=== PATIENT | female | born 1970 | race Caucasian/White ===

== ENCOUNTER 2017-12-15 22:21 | Emergency (ER) | payer BC ==
[2017-12-15] MEDS: Sodium Chloride 0.9% 1,000 ML IV ONE (23:22)
[2017-12-15] MEDS: Albuterol/Ipratropium 3.0-0.5 MG/3 ML Neb Soln NEB ONE (23:26)
[2017-12-15] MEDS: cefTRIAXone 1 GM Vial IVPUSH ONE (23:26)
[2017-12-15] MEDS: Acetaminophen 500 MG Tab PO ONE (23:27)
--- NOTE | 2017-12-15 23:29 | EDM.PDOC ---
ED HPI GENERAL MEDICAL PROBLEM - General Chief Complaint: Fever Stated Complaint: FEVER Time Seen by Provider: 12/15/17 22:45 Source of Information: Reports: Patient History Limitations: Reports: No Limitations - History of Present Illness INITIAL COMMENTS - FREE TEXT/NARRATIVE: This patient is a 47 year old female that presents to the ER. Patient reports that she began today with right flank pain and fever. She reports that she has a recurrent history of kidney infections. Patient reports this feels just like her kidney infections. Patient reports that also for about 2 weeks having cough , chest tightness due to the smoke in the air due to Myagi and allergies. The patient reports she finished steroids about one week ago. She reports then coming in earlier today, not being seen, but was given an allergy injection. The patient denies headache, n, v, d, f, cp, neck pain, abd pain, bowel changes. Reports some mild dysuria. Also, mild shortness of breath with chest tightness for a couple of weeks. Onset Date: 12/15/17 Duration: Hour(s): (12) Location: Reports: Back Quality: Reports: Ache Severity: Moderate Improves with: Reports: None Worsens with: Reports: None Associated Symptoms: Reports: Cough, Fever/Chills, Shortness of Breath. Denies : Confusion, Chest Pain, cough w sputum, Diaphoresis, Headaches, Loss of Appetite, Malaise, Nausea/Vomiting, Rash, Seizure, Syncope, Weakness Treatments T[employer] FORMS: Reports: Cold Therapy, NSAIDS Left Flank Pain Score (Numeric/FACES): 2 - Related Data Allergies Allergy/AdvReac Type Severity Reaction Status Date / Time Sulfa (Sulfonamide Allergy Nausea and Verified 12/15/17 22:33 Antibiotics) Vomiting Home Meds: Home Meds Sertraline HCl 50 mg PO DAILY 12/15/17 [History] Past Medical History [employer] History: Reports: - Past Surgical History Other Female Surgeries/Procedures: LEFT KIDNEY SURGERY A KID Social & Family History - Family History Family Medical History: Noncontributory - Tobacco Use Smoking Status *Q: Never Smoker - Caffeine Use Caffeine Use: Reports: None - Recreational Drug Use Recreational Drug Use: No ED ROS GENERAL - Review of Systems Review Of Systems: See Below Constitutional: Reports: Fever, Diaphoresis HEENT: Reports: Rhinitis, Sinus Problem Respiratory: Reports: Shortness of Breath, Wheezing, Cough Cardiovascular: Reports: No Symptoms Endocrine: Reports: No Symptoms GI/Abdominal: Reports: No Symptoms. Denies: Abdominal Pain, Nausea, Vomiting : Reports: Dysuria, Flank Pain (Right) Musculoskeletal: Reports: No Symptoms Skin: Reports: No Symptoms Neurological: Reports: No Symptoms Psychiatric: Reports: No Symptoms Hematologic/Lymphatic: Reports: No Symptoms Immunologic: Reports: No Symptoms ED EXAM, RENAL/ - Physical Exam Exam: See Below Exam Limited By: No Limitations General Appearance: Alert, WD/WN, No Apparent Distress Eye Exam: Bilateral Eye: Normal Fundi, Normal Inspection, PERRL Ears: Normal External Exam, Normal Canal, Hearing Grossly Normal, Normal TMs Nose: Normal Inspection, Normal Mucosa, No Blood Throat/Mouth: Normal Inspection, Normal Lips, Normal Teeth, Normal Gums, Normal Oropharynx, Normal Voice, No Airway Compromise Head: Atraumatic, Normocephalic Neck: Normal Inspection, Supple, Non-Tender, Full Range of Motion Respiratory/Chest: No Respiratory Distress, No Accessory Muscle Use, Chest Non- Tender, Wheezing (mildly throughout, inspiratory. ). No: Respiratory Distress Cardiovascular: Normal Peripheral Pulses, No Edema, No Gallop, No JVD, No Murmur , No Rub, Tachycardia (120 on exam. ) GI/Abdominal: Normal Bowel Sounds, Soft, Non-Tender, No Organomegaly, No Distention, No Abnormal Bruit, No Mass, Pelvis Stable (Female) Exam: Deferred Rectal (Female) Exam: Deferred Back Exam: Normal Inspection, Full Range of Motion, CVA Tenderness (R) Extremities: Normal Inspection, Normal Range of Motion, Non-Tender, No Pedal Edema, Normal Capillary Refill Neurological: Alert, Oriented, Normal Cognition, Normal Gait, No Motor/Sensory Deficits Psychiatric: Normal Affect, Normal Mood Skin Exam: Warm, Normal Color, No Rash, Diaphoretic Lymphatic: No Adenopathy Course - Vital Signs Last Recorded V/S: Last Vital Signs Temp 100.1 F 12/15/17 23:46 Pulse 125 H 12/15/17 22:56 Resp 20 12/15/17 22:56 BP 148/52 H 12/15/17 22:56 Pulse Ox 96 12/15/17 22:56 - Orders/Labs/Meds Orders: Active Orders 24 hr Category Date Time Status RT Aerosol Therapy [RC] ASDIRECTED Care 12/15/17 23:06 Active CULTURE URINE [RM] Stat Lab 12/15/17 22:46 Received UA W/MICROSCOPIC [URIN] Stat Lab 12/15/17 22:46 Ordered Labs: Laboratory Tests 12/15/17 12/15/17 12/15/17 Range/Units 22:46 22:46 22:46 WBC 9.4 (5.0-10.0) 10^3/uL RBC 4.14 (4.00-5.50) 10^6/uL Hgb 12.1 (12.0-16.0) g/dL Hct 37.4 (37.0-47.0) % MCV 90.3 (82.0-94.0) fL MCH 29.2 (27.0-32.0) pg MCHC 32.4 L (33.0-38.0) g/dL RDW Coeff of Navdeep 14.9 (11.0-15.0) % Plt Count 204 (150-400) 10^3/uL Neut % (Auto) 90.5 H (35-85) % Lymph % (Auto) 6.0 L (10-55) % [place] % (Auto) 3.2 (0-16) % Eos % (Auto) 0.2 (0-5) % Baso % (Auto) 0.1 (0-3) % Neut # (Auto) 8.54 H (1.80-7.00) 10^3/uL Lymph # (Auto) 0.57 L (1.00-4.80) 10^3/uL [place] # (Auto) 0.30 (0.00-0.80) 10^3/uL Eos # (Auto) 0.02 (0.00-0.45) 10^3/uL Baso # (Auto) 0.01 10^3/uL Sodium 138 (136-145) mEq/L Potassium 3.1 L D (3.5-5.0) mEq/L Chloride 101 (98-106) mEq/L Carbon Dioxide 24 (21-32) mmol/L BUN 16 (7-18) mg/dL Creatinine 1.3 H (0.6-1.0) mg/dL Est Cr Clr Drug Dosing 53.14 mL/min Estimated GFR (MDRD) 44 L (>=60) mL/min Glucose 112 H D (75-99) mg/dL Calcium 8.5 (8.4-10.1) mg/dL Total Bilirubin 0.6 (0.0-1.0) mg/dL AST 15 (15-37) U/L ALT 22 (12-78) U/L Alkaline Phosphatase 93 (46-116) U/L Total Protein 7.2 (6.4-8.2) g/dL Albumin 2.8 L (3.4-5.0) g/dL Urine Color Yellow (YELLOW) Urine Appearance Slightly cloudy (CLEAR) Urine pH 6.0 (4.5-8.0) Ur Specific [place] 1.010 (1.003-1.020) Urine Protein 30 H (NEGATIVE) mg/dL Urine Glucose (UA) Negative (NEGATIVE) mg/dL Urine Ketones Negative (NEGATIVE) mg/dL Urine Occult Blood Moderate H (NEGATIVE) Urine Nitrite Negative (NEGATIVE) Urine Bilirubin Negative (NEGATIVE) Urine Urobilinogen 0.2 (0.2-1.0) EU/dL Ur Leukocyte Esterase Large H (NEGATIVE) Urine RBC 10-20 H (0-5) /HPF Urine WBC 40-50 H (0-5) /HPF Ur Squamous Epith Cells Few H (NOT SEEN) /HPF Urine Bacteria Few H (NOT SEEN) /HPF Meds: Medications Discontinued Medications Generic Name Dose Route Start Last Admin Trade Name Toneq PRN Reason Stop Dose Admin Acetaminophen 1,000 mg 12/15/17 23:07 12/15/17 23:27 Tylenol Extra Strength PO 12/15/17 23:08 1,000 mg ONETIME ONE Administration Albuterol/Ipratropium 3 ml 12/15/17 23:06 12/15/17 23:26 Duoneb 3.0-0.5 Mg/3 Ml NEB 12/15/17 23:07 3 ml ONETIME ONE Administration Ceftriaxone Sodium 1 gm 12/15/17 23:05 12/15/17 23:26 Rocephin IVPUSH 12/15/17 23:06 1 gm ONETIME ONE Administration Sodium Chloride 1,000 mls @ 999 mls/hr 12/15/17 23:05 12/15/17 23:22 Normal Saline IV 12/16/17 00:05 999 mls/hr .BOLUS ONE Administration Potassium Chloride 40 meq 12/15/17 23:16 12/15/17 23:35 Klor-Con 10 PO 12/15/17 23:17 40 meq ONETIME ONE Administration - Re-Assessments/Exams Free Text/Narrative Re-Assessment/Exam: 12/15/17 23:47 Patient after breathing tx, moving more audible air. She is coughing more, but feels improved breathing. Patient is getting fluids for fever and dehydration, tylenol for fever, Rocephin for Pylonephritis, potassium for hypokalemia. Patient is alert and oriented. She reports she is feeling better. Will discharge the patient. She is educated to return for increase in fever not controlled, vomiting, worsening of condition or any other concerns. Risks explained to the patient about medications and diagnosis. Departure - Departure Time of Disposition: 23:49 Disposition: Home, Self-Care 01 Condition: Fair Clinical Impression: Pyelonephritis, Hypokalemia, Renal insufficiency Acute bronchitis Qualifiers: Bronchitis organism: unspecified organism Qualified Code(s): J20.9 - Acute bronchitis, unspecified - Discharge Information *PRESCRIPTION DRUG MONITORING PROGRAM REVIEWED*: No *COPY OF PRESCRIPTION DRUG MONITORING REPORT IN PATIENT EDGAR: No Instructions: Pyelonephritis, Adult, Hypokalemia, Urinary Tract Infection, Adult, [id number], Dehydration, Adult, [id number], Acute Bronchitis, Adult, [id number], Fever, Adult, [id number] Referrals: Nat Toscano PA [Primary Care Provider] - Forms: ED Department Discharge Additional Instructions: Followup with your primary care provider Monday Return to the ER for worsening of condition or any emergent concerns Increase fluids Tylenol and Motrin for fever and pain Cipro 500mg 1 pill twice a day for 10 days #20 no refill You were given Rocephin antibiotic in the ER tonight You were given a breathing treatment in the ER tonight You were given fluids IV in the ER tonight You were given Tylenol in the ER tonight - My Orders Last 24 Hours: My Active Orders 12/15/17 22:46 CULTURE URINE [RM] Stat UA W/MICROSCOPIC [URIN] Stat 12/15/17 23:06 RT Aerosol Therapy [RC] ASDIRECTED - Assessment/Plan Last 24 Hours: My Active Orders 12/15/17 22:46 CULTURE URINE [RM] Stat UA W/MICROSCOPIC [URIN] Stat 12/15/17 23:06 RT Aerosol Therapy [RC] ASDIRECTED Plan: PLEASE SEE RN NOTE FOR PFSH.
[2017-12-15] MEDS: Potassium Chloride 10 MEQ Tab.ER PO ONE (23:35)
== END 2017-12-16 00:25 | disposition home or self-care (01) ==
LOC: CC.ED 22:21
DX: N12 Tubulo-interstitial nephritis, not specified as acute or chronic (principal); N28.9 Disorder of kidney and ureter, unspecified; J20.9 Acute bronchitis, unspecified; E87.6 Hypokalemia; Z88.2 Allergy status to sulfonamides
CPT/HCPCS: 36415; 80053; 81001; 85025; 87086; 94640; 96365; 96375; 99283; A9270; J0696; J7030; J7620-GY